=== PATIENT | female | born 1960 | race Caucasian/White ===

== ENCOUNTER 2016-06-21 22:45 | Emergency (ER) | payer BC ==
[~2016-06-21 22:45] MED LIST: ADVAIR 250-501 EACH INH; CEFDINIR300 MG PO; COUMADIN2.5 MG PO; COUMADIN5 MG PO; DETROL LA2 MG PO; DUONEB 2.5-0.5MG3 ML NEB; GAS-X80 MG PO; GLUCOPHAGE500 MG PO; HUMALOG100 UNIT/1 SQ; HYDROCODON-ACE1 EAC6 PO; INCRUSE ELLI62.5 MCG INH; LANTUS100 UNIT/1 SQ; LASIX20 MG PO; LIPITOR10 MG PO; LIPITOR20 MG PO; MAGIC MOUTHWASH PO; MAGOX 400400 MG PO; MEDROL4 M1 PO; NEURONTIN400 MG PO; NYSTOP60 GM TOP; PAIN RELIEF650 MG PO; PREDNISONE10 MG PO; PREDNISONE5 MG PO; PROMETHAZINE-C240 ML PO; PROTONIX40 MG PO; SYMBICORT 16060 PUFF INH; VALIUM5 MG PO; VIBRAMYCIN100 MG PO; XOPENEX0.63 MG/3 NEB; ZESTRIL2.5 MG PO; ZITHROMAX250 MG PO
== END 2016-06-22 00:22 | disposition home or self-care (01) ==
LOC: ER 22:45
DX: J44.9 Chronic obstructive pulmonary disease, unspecified (principal); R05 Cough; I50.9 Heart failure, unspecified; E11.9 Type 2 diabetes mellitus without complications; K21.9 Gastro-esophageal reflux disease without esophagitis; M06.9 Rheumatoid arthritis, unspecified; Z90.710 Acquired absence of both cervix and uterus; Z98.890 Other specified postprocedural states; F17.210 Nicotine dependence, cigarettes, uncomplicated; Z79.4 Long term (current) use of insulin; Z79.899 Other long term (current) drug therapy; Z79.01 Long term (current) use of anticoagulants; Z79.52 Long term (current) use of systemic steroids
CPT/HCPCS: 71020; 94664; 96374; 99284-25; J2930

== ENCOUNTER 2016-06-24 12:47 | Inpatient (IN) | payer BC ==
[~2016-06-24] VITALS: Ht 170.2 cm; Wt 130.0 kg
[2016-06-24 13:41] LABS: BASO % 0.2 % (0.1-1.2); EOS % 0.1 % (0.7-5.8); GRAN # 11.7 10_X3_uL (1.6-6.1); GRAN % 89.2 % (34.0-71.1); HEMATOCRIT 45.7 % (34-45); HEMOGLOBIN 13.4 g/dL (11.2-15.7); LYMPH % 7.7 % (19.3-51.7); MEAN CORPUSCULAR HEMOGLOBIN 27.3 pg (27.0-33.0); MEAN CORPUSCULAR HGB CONC 29.3 g/dL (32.0-36.0); MEAN CORPUSCULAR VOLUME 93.1 fL (79-95); MEAN PLATELET VOLUME 10.9 fl (7.5-11.5); MONO # 0.4 10_X3_uL (0.2-0.9); MONO % 2.8 % (4.7-12.5); PLATELET COUNT 289 x10_3/uL (182-369); RED BLOOD COUNT 4.91 x10_6/uL (3.9-5.2); RED CELL DISTRIBUTION WIDTH 15.7 % (11.7-14.4); WHITE BLOOD COUNT 13.1 x10_3/uL (4.0-10.0)
[2016-06-24 13:53] LABS: ALBUMIN 3.5 gm/dL (3.4-5.0); ALKALINE PHOSPHATASE 90 U/L (50-136); ALT/SGPT 14 U/L (3.5-33.9); AST/SGOT 14 U/L (7.04-26.96); BLOOD UREA NITROGEN 17 mg/dL (7-18); CALCIUM 9.1 mg/dL (8.7-10.7); CARBON DIOXIDE 33 mmol/L (21-32); CREATININE 0.6 mg/dL (0.6-1.3); POTASSIUM 5.6 mmol/L (3.5-5.1); SODIUM 138 mmol/L (136-145); TOTAL PROTEIN 6.4 gm/dL (6.4-8.2)
[2016-06-24 14:03] LABS: BILIRUBIN,TOTAL < 0.15 mg/dL (0.0-1.0); GLUCOSE,RANDOM 413 mg/dL (70-99)
[2016-06-24 15:31] LABS: INR 2.1 (1.0-1.1); PARTIAL THROMBOPLASTIN TIME 32.8 SECONDS (21.8-28.4); PROTHROMBIN TIME (PATIENT) 21.3 SECONDS (9.6-10.8)
[2016-06-25 07:22] LABS: HEMATOCRIT 43.5 % (34-45); HEMOGLOBIN 12.8 g/dL (11.2-15.7); MEAN CORPUSCULAR HEMOGLOBIN 27.5 pg (27.0-33.0); MEAN CORPUSCULAR HGB CONC 29.4 g/dL (32.0-36.0); MEAN CORPUSCULAR VOLUME 93.3 fL (79-95); MEAN PLATELET VOLUME 11.3 fl (7.5-11.5); RED BLOOD COUNT 4.66 x10_6/uL (3.9-5.2); RED CELL DISTRIBUTION WIDTH 15.5 % (11.7-14.4); WHITE BLOOD COUNT 10.8 x10_3/uL (4.0-10.0)
[2016-06-25 07:31] LABS: AHDL CHOLESTEROL 56 mg/dL (>40); BLOOD UREA NITROGEN 17 mg/dL (7-18); CALCIUM 8.6 mg/dL (8.7-10.7); CARBON DIOXIDE 36 mmol/L (21-32); CHOLESTEROL 174 mg/dL (0-200); CREATININE 0.5 mg/dL (0.6-1.3); GLUCOSE,RANDOM 293 mg/dL (70-99); LDL CHOLESTEROL 103 mg/dL (0-99); POTASSIUM 4.8 mmol/L (3.5-5.1); SODIUM 143 mmol/L (136-145); TRIGLYCERIDES 99 mg/dL (30-200)
[2016-06-25 07:39] LABS: INR 2.3 (1.0-1.1); PARTIAL THROMBOPLASTIN TIME 33.4 SECONDS (21.8-28.4); PROTHROMBIN TIME (PATIENT) 23.4 SECONDS (9.6-10.8)
[2016-06-25 11:42] LABS: CKMB 3.6 ng/ml (0.0-5.0)
[2016-06-25 11:49] LABS: TROP-I < 0.30 NG/ML (0.00-0.30)
[2016-06-26 07:07] LABS: HEMATOCRIT 43.1 % (34-45); MEAN CORPUSCULAR HEMOGLOBIN 27.6 pg (27.0-33.0); MEAN CORPUSCULAR HGB CONC 30.2 g/dL (32.0-36.0); MEAN CORPUSCULAR VOLUME 91.5 fL (79-95); MEAN PLATELET VOLUME 11.4 fl (7.5-11.5); RED BLOOD COUNT 4.71 x10_6/uL (3.9-5.2); RED CELL DISTRIBUTION WIDTH 15.2 % (11.7-14.4); WHITE BLOOD COUNT 14.3 x10_3/uL (4.0-10.0)
[2016-06-26 07:20] LABS: INR 3.1 (1.0-1.1); PROTHROMBIN TIME (PATIENT) 32.5 SECONDS (9.6-10.8)
[2016-06-26 07:29] LABS: BLOOD UREA NITROGEN 20 mg/dL (7-18); CALCIUM 8.7 mg/dL (8.7-10.7); CARBON DIOXIDE 34 mmol/L (21-32); CREATININE 0.6 mg/dL (0.6-1.3); GLUCOSE,RANDOM 334 mg/dL (70-99); POTASSIUM 4.6 mmol/L (3.5-5.1); SODIUM 139 mmol/L (136-145)
== END 2016-06-26 16:10 | disposition home or self-care (01) | DRG 192 ==
LOC: ER 12:47 → MS 15:03 → UNDODEPER 06-28 15:40
PROVIDERS: Emergency Medicine; ADMIT Family Medicine
DX: J44.1 Chronic obstructive pulmonary disease with (acute) exacerbation (principal); E11.9 Type 2 diabetes mellitus without complications; I50.9 Heart failure, unspecified; Z99.81 Dependence on supplemental oxygen; Z86.718 Personal history of other venous thrombosis and embolism; F17.210 Nicotine dependence, cigarettes, uncomplicated; Z79.01 Long term (current) use of anticoagulants; Z90.49 Acquired absence of other specified parts of digestive tract; Z78.0 Asymptomatic menopausal state; Z98.890 Other specified postprocedural states; Z83.3 Family history of diabetes mellitus; Z80.3 Family history of malignant neoplasm of breast; Z80.1 Family history of malignant neoplasm of trachea, bronchus and lung; Z80.0 Family history of malignant neoplasm of digestive organs; Z88.1 Allergy status to other antibiotic agents; Z88.8 Allergy status to other drugs, medicaments and biological substances; Z88.6 Allergy status to analgesic agent; Z79.52 Long term (current) use of systemic steroids; Z79.899 Other long term (current) drug therapy; Z79.891 Long term (current) use of opiate analgesic; Z79.4 Long term (current) use of insulin
CPT/HCPCS: 36415; 71010; 80048; 80053; 80061; 82550; 82553; 82962; 83036; 83605; 83880; 84132; 85025; 85610; 85730; 87040; 87070; 87205; 93005; 93041; 94640; 94664; 96365; 96375; 99070; 99285-25; J2930; J7040; J7050

== ENCOUNTER 2016-07-11 01:05 | Emergency (ER) | payer BC ==
[2016-07-11 01:39] LABS: BASO % 0.1 % (0.1-1.2); EOS # 0.1 10_X3_uL (0.0-0.4); EOS % 0.9 % (0.7-5.8); GRAN # 10.9 10_X3_uL (1.6-6.1); GRAN % 70.3 % (34.0-71.1); HEMOGLOBIN 14.1 g/dL (11.2-15.7); LYMPH # 3.9 10_X3_uL (1.2-3.7); LYMPH % 25.3 % (19.3-51.7); MEAN CORPUSCULAR HEMOGLOBIN 27.5 pg (27.0-33.0); MEAN CORPUSCULAR VOLUME 91.6 fL (79-95); MEAN PLATELET VOLUME 10.6 fl (7.5-11.5); MONO # 0.5 10_X3_uL (0.2-0.9); MONO % 3.4 % (4.7-12.5); PLATELET COUNT 293 x10_3/uL (182-369); RED BLOOD COUNT 5.13 x10_6/uL (3.9-5.2); RED CELL DISTRIBUTION WIDTH 16.6 % (11.7-14.4); WHITE BLOOD COUNT 15.5 x10_3/uL (4.0-10.0)
[2016-07-11 01:58] LABS: CREATININE 0.8 mg/dL (0.6-1.3); POTASSIUM 4.1 mmol/L (3.4-5.0)
[2016-07-11 02:34] LABS: ALBUMIN 3.4 gm/dL (3.4-5.0); ALKALINE PHOSPHATASE 66 U/L (50-136); ALT/SGPT 25 U/L (3.5-33.9); AST/SGOT 14 U/L (7.04-26.96); BILIRUBIN,TOTAL 0.24 mg/dL (0.0-1.0); BLOOD UREA NITROGEN 21 mg/dL (7-18); CALCIUM 9.5 mg/dL (8.7-10.7); CARBON DIOXIDE 36 mmol/L (21-32); CREATININE 0.6 mg/dL (0.6-1.3); GLUCOSE,RANDOM 104 mg/dL (70-99); POTASSIUM 4.2 mmol/L (3.5-5.1); SODIUM 141 mmol/L (136-145); TOTAL PROTEIN 6.1 gm/dL (6.4-8.2)
== END 2016-07-11 02:40 | disposition home or self-care (01) ==
LOC: ER 01:05
PROVIDERS: General Practice
DX: J44.9 Chronic obstructive pulmonary disease, unspecified (principal); R60.9 Edema, unspecified; J84.9 Interstitial pulmonary disease, unspecified; F17.210 Nicotine dependence, cigarettes, uncomplicated; Z99.81 Dependence on supplemental oxygen; Z88.1 Allergy status to other antibiotic agents
CPT/HCPCS: 36415; 71010; 80048; 80053; 83880; 85025; 99284

== ENCOUNTER 2016-07-13 05:37 | Observation (INO) | payer BC ==
[~2016-07-13] VITALS: Ht 171.7 cm; Wt 133.1 kg
[2016-07-13 06:23] LABS: ARTERIAL BLOOD GAS BASE EXCESS 9.8 mmol/L (-2.0-3.0); ARTERIAL BLOOD GAS pH 7.34 (7.35-7.45)
[2016-07-13 06:24] LABS: ARTERIAL BLOOD GAS PCO2 72.3 mmHg (32-45)
[2016-07-13 06:24] LABS: BASO % 0.1 % (0.1-1.2); EOS # 0.2 10_X3_uL (0.0-0.4); GRAN # 11.3 10_X3_uL (1.6-6.1); GRAN % 71.8 % (34.0-71.1); HEMATOCRIT 45.9 % (34-45); HEMOGLOBIN 13.6 g/dL (11.2-15.7); LYMPH # 3.8 10_X3_uL (1.2-3.7); LYMPH % 24.3 % (19.3-51.7); MEAN CORPUSCULAR HEMOGLOBIN 27.6 pg (27.0-33.0); MEAN CORPUSCULAR HGB CONC 29.6 g/dL (32.0-36.0); MEAN CORPUSCULAR VOLUME 93.1 fL (79-95); MEAN PLATELET VOLUME 10.7 fl (7.5-11.5); MONO # 0.4 10_X3_uL (0.2-0.9); MONO % 2.8 % (4.7-12.5); PLATELET COUNT 246 x10_3/uL (182-369); RED BLOOD COUNT 4.93 x10_6/uL (3.9-5.2); RED CELL DISTRIBUTION WIDTH 16.8 % (11.7-14.4); WHITE BLOOD COUNT 15.8 x10_3/uL (4.0-10.0)
[2016-07-13 06:42] LABS: ALBUMIN 3.1 gm/dL (3.4-5.0); ALKALINE PHOSPHATASE 63 U/L (50-136); ALT/SGPT 19 U/L (3.5-33.9); AST/SGOT 11 U/L (7.04-26.96); BILIRUBIN,TOTAL 0.18 mg/dL (0.0-1.0); BLOOD UREA NITROGEN 21 mg/dL (7-18); CALCIUM 9.1 mg/dL (8.7-10.7); CARBON DIOXIDE 34 mmol/L (21-32); CREATINE KINASE 34 U/L (21-215); CREATININE 0.5 mg/dL (0.6-1.3); GLUCOSE,RANDOM 254 mg/dL (70-99); POTASSIUM 4.5 mmol/L (3.5-5.1); SODIUM 139 mmol/L (136-145); TOTAL PROTEIN 5.8 gm/dL (6.4-8.2)
[2016-07-13 07:19] LABS: INR 1.1 (1.0-1.1); PARTIAL THROMBOPLASTIN TIME 23.6 SECONDS (21.8-28.4); PROTHROMBIN TIME (PATIENT) 10.8 SECONDS (9.6-10.8)
[2016-07-13 12:30] LABS: ARTERIAL BLD GAS O2 SATURATION 90.4 % (94-98); ARTERIAL BLOOD GAS BASE EXCESS 5.6 mmol/L (-2.0-3.0); ARTERIAL BLOOD GAS HCO3 34.2 mmol/L (22-26); ARTERIAL BLOOD GAS pH 7.29 (7.35-7.45)
[2016-07-13 12:41] LABS: ARTERIAL BLOOD GAS PCO2 73.2 mmHg (32-45)
== END 2016-07-13 22:03 | disposition other institution (70) ==
LOC: ER 05:37 → MS 07:30
PROVIDERS: Internal Medicine; ADMIT Family Medicine
DX: J44.1 Chronic obstructive pulmonary disease with (acute) exacerbation (principal); E11.9 Type 2 diabetes mellitus without complications; R50.9 Fever, unspecified; I50.9 Heart failure, unspecified; Z99.81 Dependence on supplemental oxygen; Z79.01 Long term (current) use of anticoagulants; Z79.4 Long term (current) use of insulin; Z79.891 Long term (current) use of opiate analgesic; Z79.899 Other long term (current) drug therapy; Z88.1 Allergy status to other antibiotic agents; Z88.6 Allergy status to analgesic agent; Z88.5 Allergy status to narcotic agent; Z98.42 Cataract extraction status, left eye
CPT/HCPCS: 36415; 36600; 71010; 80053; 82550; 82553; 82803; 82962; 83605; 83880; 85025; 85610; 85730; 86738; 87040; 87449; 93005; 96365; 96375; 96376; 99285-25; G0378; J2930

== ENCOUNTER 2016-07-23 18:25 | Emergency (ER) | payer BC ==
[2016-07-23 20:19] LABS: BASO % 0.1 % (0.1-1.2); EOS % 0.1 % (0.7-5.8); GRAN # 14.2 10_X3_uL (1.6-6.1); GRAN % 86.7 % (34.0-71.1); HEMATOCRIT 43.7 % (34-45); HEMOGLOBIN 13.5 g/dL (11.2-15.7); LYMPH # 1.7 10_X3_uL (1.2-3.7); LYMPH % 10.2 % (19.3-51.7); MEAN CORPUSCULAR HGB CONC 30.9 g/dL (32.0-36.0); MEAN CORPUSCULAR VOLUME 90.5 fL (79-95); MONO # 0.5 10_X3_uL (0.2-0.9); MONO % 2.9 % (4.7-12.5); PLATELET COUNT 277 x10_3/uL (182-369); RED BLOOD COUNT 4.83 x10_6/uL (3.9-5.2); RED CELL DISTRIBUTION WIDTH 16.5 % (11.7-14.4); WHITE BLOOD COUNT 16.4 x10_3/uL (4.0-10.0)
[2016-07-23 20:30] LABS: ALBUMIN 3.4 gm/dL (3.4-5.0); ALKALINE PHOSPHATASE 59 U/L (50-136); ALT/SGPT 32 U/L (3.5-33.9); AST/SGOT 17 U/L (7.04-26.96); BILIRUBIN,TOTAL < 0.15 mg/dL (0.0-1.0); BLOOD UREA NITROGEN 25 mg/dL (7-18); CALCIUM 9.7 mg/dL (8.7-10.7); CARBON DIOXIDE 35 mmol/L (21-32); CREATININE 0.5 mg/dL (0.6-1.3); GLUCOSE,RANDOM 249 mg/dL (70-99); POTASSIUM 5.3 mmol/L (3.5-5.1); SODIUM 137 mmol/L (136-145); TOTAL PROTEIN 5.7 gm/dL (6.4-8.2)
== END 2016-07-24 00:15 | disposition home or self-care (01) ==
LOC: ER 18:25
PROVIDERS: Emergency Medicine
DX: M79.89 Other specified soft tissue disorders (principal); R06.02 Shortness of breath; E11.9 Type 2 diabetes mellitus without complications; J44.9 Chronic obstructive pulmonary disease, unspecified; I10 Essential (primary) hypertension; Z87.891 Personal history of nicotine dependence; Z88.1 Allergy status to other antibiotic agents; Z88.6 Allergy status to analgesic agent
CPT/HCPCS: 36415; 71010; 80053; 83880; 85025; 93005; 96374; 99070; 99285-25

== ENCOUNTER 2016-10-24 15:20 | Emergency (ER) | payer BC | END 2016-10-24 17:24 | disposition home or self-care (01) | LOC: ER 15:20 | DX: M25.571 Pain in right ankle and joints of right foot (principal); R06.02 Shortness of breath; Z87.81 Personal history of (healed) traumatic fracture; I50.9 Heart failure, unspecified; E11.9 Type 2 diabetes mellitus without complications; J44.9 Chronic obstructive pulmonary disease, unspecified; Z86.718 Personal history of other venous thrombosis and embolism; G47.30 Sleep apnea, unspecified; Z98.890 Other specified postprocedural states; Z90.49 Acquired absence of other specified parts of digestive tract; Z88.5 Allergy status to narcotic agent; Z88.1 Allergy status to other antibiotic agents; Z79.4 Long term (current) use of insulin; Z79.899 Other long term (current) drug therapy; Z79.52 Long term (current) use of systemic steroids | CPT/HCPCS: 73610; 99283 ==